=== PATIENT | male | born 1985 | race American Indian/Alaskan Native ===

== ENCOUNTER 2017-04-28 06:42 | Emergency (ER) | payer OTHER ==
[2017-04-28] MEDS ORDERED: SUBLIMAZE IV ONE (06:50)
[2017-04-28] MEDS ORDERED: ceFAZolin 2 GM in NACL 0.9% 100 ML IV ONE (06:50)
[2017-04-28] MEDS ORDERED: ZOFRAN IV ONE (06:50)
[2017-04-28 07:01] LABS: Basophils % (Auto) 0.6 % (0.0-1.8); Eosinophils % (Auto) 0.7 % (0.0-4.3); Hematocrit 45.2 % (35.5-45.6); Hemoglobin 14.7 gm/dl (11.8-15.2); Lymphocytes # (Auto) 1.2 K/mm3 (1.2-5.4); Lymphocytes % (Auto) 26.6 % (13.4-35.0); Mean Corpuscular HGB Conc 33 % (32-34); Mean Corpuscular Hemoglobin 30 pg (28-32); Mean Corpuscular Volume 94 fl (84-94); Monocytes # (Auto) 0.4 K/mm3 (0.0-0.8); Platelet Count 290 K/mm3 (140-440); Red Blood Count 4.82 M/mm3 (3.65-5.03); Red Cell Distribution Width 13.7 % (13.2-15.2)
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
[2017-04-28 07:15] LABS: BUN/Creatinine Ratio 10; Blood Urea Nitrogen 11 mg/dL (9-20); Calcium 9.8 mg/dL (8.4-10.2); Hemolysis Index 63
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
[2017-04-28] MEDS ORDERED: ANCEF/STERILE WATER 2 GM/20 ML 2 GM/20 ML SYRINGE IV ONE (08:00)
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
[2017-04-28] MEDS ORDERED: NACL 0.9% 100 ML ONE (10:26)
[2017-04-28 13:20] VITALS: BP 126/79
== END 2017-04-28 13:22 | disposition home or self-care (01) ==
LOC: ED 06:42
DX: S71.102A Unspecified open wound, left thigh, initial encounter (principal); X58.XXXA Exposure to other specified factors, initial encounter; Y93.89 Activity, other specified; Y92.89 Other specified places as the place of occurrence of the external cause; Y99.8 Other external cause status
CPT/HCPCS: 36415; 73552; 73706; 80048; 85025; 86850; 86900; 86901; 96374; 96375; 99284; J0690; J2405; J3010; Q9967

== ENCOUNTER 2020-01-16 07:33 | Emergency (ER) | payer SELFPAY | END 2020-01-16 08:00 | disposition left against medical advice (07) | LOC: ED 07:33 | DX: Z53.21 Procedure and treatment not carried out due to patient leaving prior to being seen by health care provider (principal) ==